=== PATIENT | female | born 1940 | race Caucasian/White ===

== ENCOUNTER → 2017-02-28 | Outpatient (CLI) | payer MEDICARE, OTHER ==
[~2017-02-28] VITALS: Ht 152.4 cm; Wt 75.7 kg
[~2017-02-28] MED LIST: /CELE20CA PO; /ESOM40CA OR; /WARF5TA PO; AMBI5TAB PO; ATOR1TAB21 PO; BACI500O8 TOP; CALCTAB28 PO; CALCTAB29 PO; CELE-19 PO; CETI10CH PO; COLA100C3 PO; COUM7.5T PO; CYCL10TA PO; DOCU100T PO; FISH1000 PO; FISHOIL XX; FLEX10TA2 PO; FOLI1TAB86 PO; GENT1SOL17 OU; HYDR200T3 PO; HYDROCHLOROQUIN OR; ICAPCAP PO; IRON65TA PO; LASI20TA PO; LIDO1DIS2 TD; LIDO5DIS EX; LIDOCAINE 2% INJ 100 MG/5 ML SDV (FOR ANES.) As Ordered ONE; LIDOCAINE PATCH TOP; MISO200T3 PO; MULTCAP8 PO; MULTTAB4 PO; NEXI40CA PO; NIFE1TAB PO; NIFE20CA PO; NS 1,000 ML IV ONE; OXYB10TA PO; PERC7.5T12 PO; PILO5TAB PO; PILO5TAB3 PO; PROPOFOL 200 MG/20 ML VIAL As Ordered ONE; SERT-138 PO; TYLE325T5 PO; VITA-130 PO; ZOLO100T PO; [UNRECOGNIZED DRUG - CODE] PO; [UNRECOGNIZED DRUG - CODE] PO; [UNRECOGNIZED DRUG - CODE] TOP; [UNRECOGNIZED DRUG - CODE] TOP; [UNRECOGNIZED DRUG - OTHER] OR; [UNRECOGNIZED DRUG - OTHER] OU; ambien OR
--- NOTE | 2017-02-28 13:21 | ROOR ---
Patient Name: Estefania Middleton Procedure Date: 02/28/2017 1:04 PM Date of : 1940 Age: 76 Room: [facility] Gender: Female Note Status: Finalized Procedure: Upper Endoscopy + Biopsies Indications: Follow-up of Tellez's esophagus Providers: Burton Arceo MD Referring MD: TAYLOR VAZQUEZ MD Requesting Provider: Medicines: Monitored Anesthesia Care Complications: No immediate complications. Procedure: Pre-Anesthesia Assessment: - The heart rate, respiratory rate, oxygen saturations, blood pressure, adequacy of pulmonary ventilation, and response to care were monitored throughout the procedure. The Endoscope was introduced through the mouth, and advanced to the second part of duodenum. The upper GI endoscopy was accomplished without difficulty. The patient tolerated the procedure well. Findings: The Z-line was irregular and was found 35 cm from the incisors. Multiple biopsies were obtained with cold forceps for evaluation to rule out Tellez's Esophagus randomly at the gastroesophageal junction. A medium-sized hiatal hernia was present. No other significant abnormalities were identified in a careful examination of the stomach. The exam of the duodenum was otherwise normal. Impression: - Z-line irregular, 35 cm from the incisors. - Medium-sized hiatal hernia. - Multiple biopsies were obtained at the gastroesophageal junction. - The examination was otherwise normal. Recommendation: - Patient has a contact number available for emergencies. The signs and symptoms of potential delayed complications were discussed with the patient. Return to normal activities tomorrow. Written discharge instructions were provided to the patient. - High fiber diet. - Discharge patient to home. - Follow an antireflux regimen. - Continue present medications. - Await pathology results. - Telephone GI clinic for pathology results in 1 week. - Check Portal Online for Path Results.([email or web address]) - Return to referring physician. - The findings and recommendations were discussed with the patient's family. Burton Arceo MD Burton Arceo MD 02/28/2017 1:20:57 PM This report has been signed electronically. Number of Addenda: 0 Note Initiated On: 02/28/2017 1:04 PM Estimated Blood Loss: Estimated blood loss: none.
--- NOTE | 2017-02-28 13:53 | ROOR ---
Patient Name: Estefania Middleton Procedure Date: 02/28/2017 1:06 PM Date of : 1940 Age: 76 Room: [facility] Gender: Female Note Status: Finalized Procedure: Total Colonoscopy to Cecum + Cold Snare Polypectomy + Hemoclips Indications: Colon cancer screening in patient at increased risk: Colorectal cancer in mother, High risk colon cancer surveillance: Personal history of colonic polyps Providers: Burton Arceo MD Referring MD: TAYLOR VAZQUEZ MD Requesting Provider: Medicines: Monitored Anesthesia Care Complications: No immediate complications. Procedure: Pre-Anesthesia Assessment: - The heart rate, respiratory rate, oxygen saturations, blood pressure, adequacy of pulmonary ventilation, and response to care were monitored throughout the procedure. The Colonoscope was introduced through the anus and advanced to the cecum, identified by appendiceal orifice and ileocecal valve. The colonoscopy was performed without difficulty. The patient tolerated the procedure well. The quality of the bowel preparation was good. Findings: The perianal and digital rectal examinations were normal. Non-bleeding internal hemorrhoids were found during retroflexion. The hemorrhoids were small and Grade I (internal hemorrhoids that do not prolapse). Scattered small-mouthed diverticula were found in the recto-sigmoid colon, sigmoid colon and descending colon. Multiple sessile polyps were found in the ascending colon. The polyps were small in size. These polyps were removed with a cold snare. Resection and retrieval were complete. To prevent bleeding after the polypectomy, five hemostatic clips were successfully placed (MR conditional). There was no bleeding at the end of the procedure. The exam was otherwise without abnormality on direct and retroflexion views. Impression: - Non-bleeding internal hemorrhoids. - Diverticulosis in the recto-sigmoid colon, in the sigmoid colon and in the descending colon. - Multiple small polyps in the ascending colon, removed with a cold snare. Resected and retrieved. Clips (MR conditional) were placed. - The examination was otherwise normal on direct and retroflexion views. - The exam was otherwise normal to the cecum. Recommendation: - Patient has a contact number available for emergencies. The signs and symptoms of potential delayed complications were discussed with the patient. Return to normal activities tomorrow. Written discharge instructions were provided to the patient. - Discharge patient to home. - High fiber diet. - Await pathology results. - Telephone GI clinic for pathology results in 1 week. - Repeat colonoscopy in 1 year for surveillance based on pathology results. - Return to referring physician. - Check Portal Online for Path Results.([email or web address] - Telephone GI clinic for pathology results in 1 week. - The findings and recommendations were discussed with the patient's family. Burton Arceo MD Burton Arceo MD 02/28/2017 1:53:22 PM This report has been signed electronically. Number of Addenda: 0 Note Initiated On: 02/28/2017 1:06 PM Estimated Blood Loss: Estimated blood loss: none.
[2017-02-28 14:15] VITALS: BP 157/80
== END | disposition home or self-care (01) ==
LOC: M OPP 12:15
PROVIDERS: ATTEND Internal Medicine Gastroenterology
DX: Z12.11 Encounter for screening for malignant neoplasm of colon (principal); D12.2 Benign neoplasm of ascending colon; K64.0 First degree hemorrhoids; K57.30 Diverticulosis of large intestine without perforation or abscess without bleeding; Z86.010 Personal history of colon polyps; Z80.0 Family history of malignant neoplasm of digestive organs; K22.70 Barrett's esophagus without dysplasia; K22.8 Other specified diseases of esophagus; K44.9 Diaphragmatic hernia without obstruction or gangrene; I10 Essential (primary) hypertension; E78.5 Hyperlipidemia, unspecified; K58.9 Irritable bowel syndrome, unspecified; R12 Heartburn; M19.90 Unspecified osteoarthritis, unspecified site; M54.9 Dorsalgia, unspecified; F41.9 Anxiety disorder, unspecified; F32.9 Major depressive disorder, single episode, unspecified; R06.02 Shortness of breath; Z88.2 Allergy status to sulfonamides; Z88.8 Allergy status to other drugs, medicaments and biological substances; Z79.899 Other long term (current) drug therapy

== ENCOUNTER → 2017-06-23 | Outpatient (REF) | payer MEDICARE, OTHER ==
[~2017-06-23] MED LIST changes: -CELE-19 PO; +CELE1CAP4 PO; -COLA100C3 PO; +COLA100C5 PO; -LIDOCAINE 2% INJ 100 MG/5 ML SDV (FOR ANES.) As Ordered ONE; +MISO200T56 PO; -NS 1,000 ML IV ONE; -PROPOFOL 200 MG/20 ML VIAL As Ordered ONE; -VITA-130 PO; +VITA500T PO
[2017-06-23 16:10] LABS: BASO % 0.3 % (0.0-1.0); EOS # 0.2 K/mm3 (0.0-0.50); EOS % 2.4 % (0.0-3.0); LARGE UNSTAINED CELL # 0.1 K/mm3 (0.0-0.4); LARGE UNSTAINED CELL % 1.7 % (0.0-4.0); LYMPH # 2.4 K/mm3 (1.5-4.5); LYMPH % 33.6 % (24.0-44.0); MEAN CORPUSCULAR HEMOGLOBIN 30.5 pg (27.0-33.0); MEAN CORPUSCULAR HGB CONC 33.8 g/dl (32.0-36.5); MEAN CORPUSCULAR VOLUME 90.3 fl (80.0-96.0); MONO # 0.4 K/mm3 (0.0-0.8); MONO % 6.1 % (0.0-5.0); NEUTROPHILS # 3.9 K/mm3 (1.8-7.7); NEUTROPHILS % 55.8 % (36.0-66.0); PLATELET COUNT, AUTOMATED 177 k/mm3 (150-450); RED CELL DISTRIBUTION WIDTH 13.1 % (11.5-14.5)
[2017-06-23 16:45] LABS: ERYTHROCYTE SEDIMENTATION RATE 22 mm/hr (0-30)
== END ==
LOC: M LABDRAW1 15:29
PROVIDERS: ATTEND Physician Assistant
DX: M17.11 Unilateral primary osteoarthritis, right knee (principal)

== ENCOUNTER → 2017-06-27 | Outpatient (CLI) | payer MEDICARE, OTHER ==
--- NOTE | 2017-06-27 13:10 | REP ---
Three-phase bone scan of the knees: History: Osteoarthritis right knee. Question infection in the left knee. The patient relates pain in the left knee with redness, swelling, and heat. Comparison scintigraphy is from August 21, 2015. The patient is status post left knee arthroplasty 5 years ago. Technique: 22.0 mCi technetium 99m MDP is injected and standard three-phase imaging is acquired. Scintigraphic findings: The anterior and posterior flow study is normal. Blood pool images demonstrate photopenia associated with prosthetic arthroplasty components in the left knee. Delayed scan images demonstrate expected bone prosthesis interface uptake on both sides of the knee arthroplasty in the left knee. Medial soft tissue calf uptake is again noted bilaterally possibly related to varicosities as before. No change from comparison study. Impression: No evidence to suggest loosening or infection. Signed by Lorenzo Miramontes MD 06/27/2017 04:29 P
== END ==
LOC: M RAD 08:05
PROVIDERS: ATTEND Physician Assistant
DX: M17.11 Unilateral primary osteoarthritis, right knee (principal)
CPT/HCPCS: 78315; A9503

== ENCOUNTER → 2017-07-04 | Outpatient (REF) | payer MEDICARE, OTHER | LOC: M LABDRAW1 16:51 | PROVIDERS: ATTEND Physician Assistant | DX: M70.62 Trochanteric bursitis, left hip (principal) ==

== ENCOUNTER → 2018-04-06 | Outpatient (CLI) | payer MEDICARE, OTHER | LOC: M RAD 15:41 | DX: I27.20 Pulmonary hypertension, unspecified (principal); M34.9 Systemic sclerosis, unspecified; I65.23 Occlusion and stenosis of bilateral carotid arteries | CPT/HCPCS: 93880 ==

== ENCOUNTER → 2018-05-15 | Outpatient (CLI) | payer MEDICARE, OTHER | LOC: M WHC 08:47 | DX: Z13.820 Encounter for screening for osteoporosis (principal); M85.88 Other specified disorders of bone density and structure, other site; M85.852 Other specified disorders of bone density and structure, left thigh; M85.851 Other specified disorders of bone density and structure, right thigh; M34.9 Systemic sclerosis, unspecified | CPT/HCPCS: 77080 ==

== ENCOUNTER → 2018-07-12 | Outpatient (CLI) | payer MEDICARE, OTHER | LOC: M WHC 12:51 | DX: Z12.31 Encounter for screening mammogram for malignant neoplasm of breast (principal); N60.31 Fibrosclerosis of right breast; N60.32 Fibrosclerosis of left breast | CPT/HCPCS: 77067 ==

== ENCOUNTER 2018-08-02 09:40 | Day surgery (SDC) | payer MEDICARE, OTHER ==
[2018-08-02] MEDS: NS 1,000 ML IV (10:29)
[2018-08-02] MEDS ORDERED: LIDOCAINE 2% INJ 100 MG/5 ML SDV (FOR ANES.) As Ordered (10:49)
[2018-08-02] MEDS ORDERED: PROPOFOL 200 MG/20 ML VIAL As Ordered ×2 (10:49)
== END 2018-08-02 12:15 | disposition home or self-care (01) ==
LOC: M OPP 09:40
DX: Z09 Encounter for follow-up examination after completed treatment for conditions other than malignant neoplasm (principal); D37.4 Neoplasm of uncertain behavior of colon; Z86.010 Personal history of colon polyps; D12.2 Benign neoplasm of ascending colon; K64.0 First degree hemorrhoids; K57.30 Diverticulosis of large intestine without perforation or abscess without bleeding; R12 Heartburn; K22.70 Barrett's esophagus without dysplasia; K22.8 Other specified diseases of esophagus; K44.9 Diaphragmatic hernia without obstruction or gangrene; I10 Essential (primary) hypertension; E78.5 Hyperlipidemia, unspecified; R01.1 Cardiac murmur, unspecified; E11.9 Type 2 diabetes mellitus without complications; K58.9 Irritable bowel syndrome, unspecified; K21.9 Gastro-esophageal reflux disease without esophagitis; D64.9 Anemia, unspecified; M19.90 Unspecified osteoarthritis, unspecified site; M06.9 Rheumatoid arthritis, unspecified; M79.7 Fibromyalgia; M32.9 Systemic lupus erythematosus, unspecified; M54.89 Other dorsalgia; I73.00 Raynaud's syndrome without gangrene; M34.9 Systemic sclerosis, unspecified; M81.0 Age-related osteoporosis without current pathological fracture; R51 Headache; Z78.0 Asymptomatic menopausal state; J34.89 Other specified disorders of nose and nasal sinuses; I27.0 Primary pulmonary hypertension; R06.02 Shortness of breath; F17.210 Nicotine dependence, cigarettes, uncomplicated; Z96.652 Presence of left artificial knee joint; Z88.2 Allergy status to sulfonamides; Z88.8 Allergy status to other drugs, medicaments and biological substances; Z79.899 Other long term (current) drug therapy; Z80.0 Family history of malignant neoplasm of digestive organs; Z80.49 Family history of malignant neoplasm of other genital organs
CPT/HCPCS: 45380

== ENCOUNTER → 2018-12-12 | Outpatient (CLI) | payer MEDICARE, OTHER ==
[~2018-12-12] MED LIST changes: +DICL1GEL3 TOP; +FISH7.5C PO; +FOLI1TAB11 PO; -LASI20TA PO; +LASI20TA3 PO; +LIDO5DIS41 TD; -NIFE1TAB PO; +NIFE90TA20 PO
--- NOTE | 2018-12-19 23:08 | SLEEPCENT ---
DATE OF PROCEDURE: 12/12/2018 Order by: Dr. Miramontes Nocturnal polysomnography was performed for evaluation of sleep physiology in this patient with a history of excessive somnolence and nonrestorative sleep. 8 hours of 14 minutes of data were reviewed. There were 412 minutes of sleep identified. Sleep latency was normal at 18 minutes. REM latency was delayed at 359 minutes. Sleep architecture initially poor, improved late in the study with one REM cycle noted. Overall sleep efficiency was 85%. The patient's electrocardiogram showed a sinus rhythm with an average heart rate of 84 beats per minute. EEG showed normal waveforms for awake and sleep. There 243 respiratory events identified of 10 seconds in duration or greater for an apnea-hypopnea index of 35.4. The events were primarily obstructive, not exclusive to sleep stage, more frequent but not exclusive to the supine posture. Arousals from respiratory events occurred 3.1 times per hour, oxygen desaturations were seen into the 70s with minor limb activity noted. IMPRESSION Severe obstructive sleep apnea syndrome (G47.33). Apnea-hypopnea index 35.4. RECOMMENDATIONS The patient should be encouraged to return to the sleep disorder center for pressure therapy. In the interim, alcohol and sedative avoidance should be practiced and caution exercised during the operation of motor vehicles.
== END ==
LOC: M SLEEP 19:29
PROVIDERS: ATTEND Internal Medicine Pulmonary Disease
DX: G47.33 Obstructive sleep apnea (adult) (pediatric) (principal)

== ENCOUNTER → 2019-02-07 | Outpatient (CLI) | payer MEDICARE, OTHER ==
[~2019-02-07] MED LIST changes: -/CELE20CA PO; -/ESOM40CA OR; -/WARF5TA PO; +COUM1TAB17 PO; +NEXI1CAP3 OR; +[UNRECOGNIZED DRUG - CODE] PO; -[UNRECOGNIZED DRUG - CODE] PO
--- NOTE | 2019-02-12 16:22 | SLEEPCENT ---
DATE OF PROCEDURE: 02/07/2019 ORDERED BY: Dr. Miramontes Nocturnal polysomnography was performed for the titration of pressure therapy in this patient with obstructive sleep apnea syndrome, apnea-hypopnea index 35.4. For testing, the patient was fit with a ResMed AirFit F10 full face mask of small size. 4 cm of water pressure were applied to the circuit and the lights were extinguished. 8 hours and 12 minutes of data were reviewed. There were 346 minutes of sleep identified. Sleep latency was mildly prolonged at 49 minutes. Rapid eye movement (REM) sleep occurred shortly after sleep onset at 37 minutes. Sleep architecture was fair. Overall sleep efficiency 71%. Two REM cycles were appreciated. The patient's electrocardiogram showed a sinus rhythm with an average heart rate at 80 beats per minute. EEG showed normal waveforms for awake and sleep stages. Persistence of respiratory events prompted an increase in continuous positive airway pressure (CPAP) at a pressure of 13 cm and mild hypopneic events were seen, but there were no significant oxygen desaturations. IMPRESSION: Obstructive sleep apnea syndrome (G47.33). RECOMMENDATIONS: Nightly use of pressure therapy 13 cm of water.
== END ==
LOC: M SLEEP 19:25
PROVIDERS: ATTEND Internal Medicine Pulmonary Disease
DX: G47.33 Obstructive sleep apnea (adult) (pediatric) (principal)

== ENCOUNTER → 2020-02-11 | Outpatient (CLI) | payer MEDICARE, OTHER ==
[~2020-02-11] MED LIST changes: +CYCL-707 PO; -CYCL10TA PO; -OXYB10TA PO; +OXYB10TA23 PO; +VITA-243 PO; -VITA500T PO
--- NOTE | 2020-02-11 11:30 | REP ---
REASON FOR EXAM: History of scleroderma. Assess for interstitial lung disease. There are no prior for comparison. Standard CT imaging of the chest 09/04/2014 is the only prior chest CT for comparison. There are no fixed ground-glass opacities. No abnormal septal opacities are present. There are no significant pulmonary nodules. There is mild cylindrical bronchiectasis. There is no honeycomb lung. There are a few subcentimeter sized cystic airspaces in the right lung. There is no mediastinal or hilar adenopathy. There are no pleural or pericardial effusions. The imaged upper abdomen and imaged osseous structures are within normal limits. IMPRESSION: 1. Mild chronic lung field changes as described above. There is no evidence of interstitial lung disease. 2. There is a single 4 mm sized pleural-based nodule in the left upper lobe. When compared to the 09/04/[address] of the chest, this nodule is unchanged. In addition, the small cystic airspaces seen in the right lung are unchanged from that prior standard CT of the chest as well. Electronically Signed by Duane Villagran DO 02/11/2020 12:12 P
== END ==
LOC: M RAD 09:40
PROVIDERS: ATTEND Internal Medicine Pulmonary Disease
DX: L94.3 Sclerodactyly (principal); R91.1 Solitary pulmonary nodule; J47.9 Bronchiectasis, uncomplicated

== ENCOUNTER → 2021-06-25 | Outpatient (CLI) | payer MEDICARE, OTHER ==
--- NOTE | 2021-06-25 20:25 | REPVR ---
PROCEDURE INFORMATION: Exam: MR Head Without Contrast Exam date and time: 06/25/2021 9:48 AM Age: 81 years old Clinical indication: Pain; Headache TECHNIQUE: Imaging protocol: MR of the head without contrast. COMPARISON: US Duplex,carotid (complete) 04/06/2018 3:57 PM FINDINGS: Brain: Nonspecific T2/FLAIR hyperintensities of the periventricular and deep subcortical white matter and melissa, most likely secondary to chronic small vessel ischemic change. No intracranial hemorrhage or extra-axial fluid collection. No evidence of mass effect or midline shift. No restricted diffusion to suggest acute infarct. Cerebral ventricles: Mild prominence of the ventricles and sulci, likely attributed to parenchymal volume loss. Bones/joints: Unremarkable. Paranasal sinuses: Normal as visualized. No acute sinusitis. Mastoid air cells: No mastoid effusion. Orbital cavity: Unremarkable. Soft tissues: Unremarkable. IMPRESSION: 1. No acute intracranial pathology. 2. Chronic findings, as above. Electronically signed by: Francisco Ramon On 06/25/2021 20:25:01 PM
== END ==
LOC: M PLAIMG 07:56
PROVIDERS: ATTEND Emergency Medicine
DX: R51.9 Headache, unspecified (principal)

== ENCOUNTER → 2022-04-18 | Outpatient (CLI) | payer MEDICARE, OTHER | LOC: M RAD 13:14 | PROVIDERS: ATTEND Student in an Organized Health Care Education/Training Program | DX: M25.511 Pain in right shoulder (principal) ==

== ENCOUNTER → 2022-09-17 | Outpatient (CLI) | payer MEDICARE, OTHER ==
[~2022-09-17] MED LIST changes: +FISH10005 PO; -FISH7.5C PO
[2022-09-17 13:13] LABS: PLATELET COUNT, AUTOMATED 170 10^3/uL (150-450)
[2022-09-17 13:25] LABS: INR 0.92; PROTHROMBIN TIME 12.6 SECONDS (12.5-14.5)
== END ==
LOC: M PLALAB 10:07
PROVIDERS: ATTEND Physician Assistant
DX: M48.062 Spinal stenosis, lumbar region with neurogenic claudication (principal); Z79.899 Other long term (current) drug therapy

== ENCOUNTER → 2023-01-04 | Outpatient (CLI) | payer MEDICARE, OTHER ==
[~2023-01-04] MED LIST changes: +ISOVUE-370 76% 100ML VIAL As Ordered ONE
== END ==
LOC: M RAD 08:13
PROVIDERS: ATTEND Otolaryngology
DX: M35.00 Sjogren syndrome, unspecified (principal)
CPT/HCPCS: 70491; Q9967

== ENCOUNTER → 2023-01-12 | Outpatient (CLI) | payer MEDICARE ==
[~2023-01-12] MED LIST changes: -ISOVUE-370 76% 100ML VIAL As Ordered ONE
== END ==
LOC: M RAD 10:12
PROVIDERS: ATTEND Otolaryngology
DX: K44.9 Diaphragmatic hernia without obstruction or gangrene (principal); K21.9 Gastro-esophageal reflux disease without esophagitis; R13.10 Dysphagia, unspecified; R06.00 Dyspnea, unspecified

== ENCOUNTER → 2023-01-12 | Outpatient (CLI) | payer MEDICARE ==
[~2023-01-12] MED LIST changes: +E-Z-GAS II EFFERVESCENT PACKET (SODIUM BICARB./CITRIC ACID/SIMETHICONE) As Ordered ONE; +E-Z-HD 98% w/w 340GM SUSP BTL As Ordered ONE; +E-Z-PAQUE 96% w/w SUSP 176GM BTL As Ordered ONE
== END ==
LOC: M RAD 10:19
PROVIDERS: ATTEND Internal Medicine Pulmonary Disease
DX: R06.00 Dyspnea, unspecified (principal)

== ENCOUNTER 2023-02-19 15:44 | Emergency (ER) | payer MEDICARE ==
[~2023-02-19] VITALS: Ht 152.4 cm; Wt 77.3 kg
[~2023-02-19 15:44] MED LIST changes: -E-Z-GAS II EFFERVESCENT PACKET (SODIUM BICARB./CITRIC ACID/SIMETHICONE) As Ordered ONE; -E-Z-HD 98% w/w 340GM SUSP BTL As Ordered ONE; -E-Z-PAQUE 96% w/w SUSP 176GM BTL As Ordered ONE
[2023-02-19] MEDS ORDERED: traMADol 50 MG TAB PO ONE (17:05)
[2023-02-19] MEDS ORDERED: LIDOCAINE 5% (LIDODERM) PATCH TD ONE (17:05)
[2023-02-19] MEDS ORDERED: predniSONE 20 MG TAB PO ONE (18:55)
[2023-02-19] MEDS ORDERED: MEDR4PAK PO (18:59)
[2023-02-19] MEDS ORDERED: TRAM50TA2 PO (18:59)
[2023-02-19 19:15] VITALS: BP 154/60
== END 2023-02-19 19:17 | disposition home or self-care (01) ==
LOC: M ED 15:44
DX: M25.552 Pain in left hip (principal); M54.50 Low back pain, unspecified; I10 Essential (primary) hypertension; R51.9 Headache, unspecified; M32.9 Systemic lupus erythematosus, unspecified; Z88.2 Allergy status to sulfonamides; Z88.8 Allergy status to other drugs, medicaments and biological substances; Z79.1 Long term (current) use of non-steroidal anti-inflammatories (NSAID); Z79.811 Long term (current) use of aromatase inhibitors; Z79.899 Other long term (current) drug therapy
CPT/HCPCS: 72131; 73700; 93971; 99283; J7512

== ENCOUNTER → 2023-02-28 | Outpatient (CLI) | payer MEDICARE, OTHER ==
[~2023-02-28] MED LIST changes: +MEDR4PAK PO; +TRAM50TA2 PO
== END ==
LOC: M RAD 10:41
PROVIDERS: ATTEND Otolaryngology
DX: E04.2 Nontoxic multinodular goiter (principal)

== ENCOUNTER → 2023-03-21 | Outpatient (CLI) | payer MEDICARE, OTHER ==
[~2023-03-21] MED LIST changes: -HYDR200T3 PO; +HYDR200T46 PO; -NIFE90TA20 PO; +NIFE90TA46 PO
[2023-03-21 13:11] LABS: PLATELET COUNT, AUTOMATED 182 10^3/uL (150-450)
[2023-03-21 13:20] LABS: INR 0.9; PROTHROMBIN TIME 12.3 SECONDS (12.5-14.5)
[2023-03-21 13:21] LABS: PARTIAL THROMBOPLASTIN TIME 28.8 SECONDS (24.8-34.2)
== END ==
LOC: M PLALAB 11:03
PROVIDERS: ATTEND Physician Assistant Surgical
DX: Z01.818 Encounter for other preprocedural examination (principal)

== ENCOUNTER → 2023-11-04 | Outpatient (CLI) | payer MEDICARE, OTHER ==
[~2023-11-04] MED LIST changes: +DICL100G10 TOP; -DICL1GEL3 TOP; +KP F1200 PO; +METH2.5T48; -MISO200T56 PO; +MISO200T83 PO; +MYRB25TA PO; +VENTAER INH
== END ==
LOC: M WHC 10:39
PROVIDERS: ATTEND Internal Medicine
DX: M81.0 Age-related osteoporosis without current pathological fracture (principal); M85.88 Other specified disorders of bone density and structure, other site

== ENCOUNTER → 2023-11-15 | Outpatient (CLI) | payer MEDICARE, OTHER ==
[~2023-11-15] MED LIST changes: +GASTROGRAFIN SOLUTION 30ML As Ordered ONE; +ISOVUE-370 76% 100ML VIAL As Ordered ONE
== END ==
LOC: M RAD 12:45
PROVIDERS: ATTEND Internal Medicine
DX: R10.12 Left upper quadrant pain (principal); N28.1 Cyst of kidney, acquired
CPT/HCPCS: 74170; Q9963; Q9967

== ENCOUNTER → 2024-05-24 | Outpatient (CLI) | payer MEDICARE, OTHER ==
[~2024-05-24] MED LIST changes: +CALC1TAB30 PO; +CVSTAB PO; -GASTROGRAFIN SOLUTION 30ML As Ordered ONE; +ICAPCAP2 PO; -ISOVUE-370 76% 100ML VIAL As Ordered ONE; +LOTE5DRO OP; +METH2.5T48 PO; +PILO7.5T3 PO
== END ==
LOC: M PLAIMG 09:48
PROVIDERS: ATTEND Internal Medicine Pulmonary Disease
DX: R91.8 Other nonspecific abnormal finding of lung field (principal)

== ENCOUNTER → 2024-05-24 | Outpatient (CLI) | payer MEDICARE, OTHER | LOC: M CARPUL 08:47 | PROVIDERS: ATTEND Internal Medicine Pulmonary Disease | DX: R06.00 Dyspnea, unspecified (principal); R91.8 Other nonspecific abnormal finding of lung field ==

== ENCOUNTER 2024-05-28 10:19 | Day surgery (SDC) | payer MEDICARE, OTHER ==
[~2024-05-28] VITALS: Ht 152.4 cm; Wt 67.3 kg
[~2024-05-28 10:19] MED LIST changes: +NS 1,000 ML IV ONE
[2024-05-28] MEDS: NS 1,000 ML IV ONE (10:50)
[2024-05-28] MEDS ORDERED: propofoL 200 MG/20 ML VIAL As Ordered ONE (11:46)
[2024-05-28] MEDS ORDERED: LIDOCAINE 2% 100MG/5ML SDV (FOR ANES.) As Ordered ONE (11:46)
[2024-05-28 13:00] VITALS: BP 140/66; O2SAT 98
== END 2024-05-28 13:13 | disposition home or self-care (01) ==
LOC: M OPP 10:19
PROVIDERS: ATTEND Internal Medicine Gastroenterology
DX: Z12.11 Encounter for screening for malignant neoplasm of colon (principal); Z86.010 Personal history of colon polyps; Z80.0 Family history of malignant neoplasm of digestive organs; K63.5 Polyp of colon; K64.0 First degree hemorrhoids; K57.30 Diverticulosis of large intestine without perforation or abscess without bleeding; K22.89 Other specified disease of esophagus; K44.9 Diaphragmatic hernia without obstruction or gangrene; K22.70 Barrett's esophagus without dysplasia; R12 Heartburn; G47.30 Sleep apnea, unspecified; M32.9 Systemic lupus erythematosus, unspecified; M79.7 Fibromyalgia; Z79.1 Long term (current) use of non-steroidal anti-inflammatories (NSAID); Z79.2 Long term (current) use of antibiotics; Z79.4 Long term (current) use of insulin; Z79.631 Long term (current) use of antimetabolite agent; Z79.891 Long term (current) use of opiate analgesic; Z79.899 Other long term (current) drug therapy; Z88.2 Allergy status to sulfonamides

== ENCOUNTER → 2024-09-12 | Outpatient (REF) | payer MEDICARE, OTHER ==
[~2024-09-12] MED LIST changes: -NS 1,000 ML IV ONE
[2024-09-12 17:40] LABS: APPEARANCE, URINE HAZY (CLEAR); BACTERIA, URINE AUTO NEGATIVE (NEGATIVE); BILIRUBIN, URINE AUTO NEGATIVE (NEGATIVE); BLOOD, URINE BLOOD NEGATIVE (NEGATIVE); COLOR, URINE AMBER (YELLOW); GLUCOSE, URINE (UA) AUTO NEGATIVE (NEGATIVE); KETONE, URINE AUTO TRACE mg/dL (NEGATIVE); LEUKOCYTE ESTERASE, URINE AUTO NEGATIVE (NEGATIVE); MUCUS, URINE SMALL (NEGATIVE); NITRITE, URINE AUTO NEGATIVE (NEGATIVE); PROTEIN, URINE AUTO 1+ mg/dL (NEGATIVE); RBC, URINE AUTO 0 /HPF (0-3); SPECIFIC GRAVITY URINE AUTO 1.024 (1.002-1.035); SQUAMOUS EPITHELIAL CELL UR AU 0 /HPF (0-6); WBC, URINE AUTO 1 /HPF (0-3)
== END ==
LOC: M SMT 17:00
PROVIDERS: ATTEND Nurse Practitioner Family
DX: N39.46 Mixed incontinence (principal)

== ENCOUNTER 2024-12-09 16:38 | Emergency (ER) | payer MEDICARE, OTHER ==
[~2024-12-09] VITALS: Ht 152.4 cm; Wt 68.6 kg
[2024-12-09] MEDS: ACETAMINOPHEN 500 MG TAB PO ONE (18:39)
[2024-12-09 18:55] VITALS: BP 143/66; TEMP 99.1; O2SAT 96
[2024-12-09] MEDS: DERMABOND TOPICAL SKIN ADHESIVE TOP ONE (19:24)
== END 2024-12-09 19:38 | disposition home or self-care (01) ==
LOC: M ED 16:38
DX: S01.81XA Laceration without foreign body of other part of head, initial encounter (principal); W01.198A Fall on same level from slipping, tripping and stumbling with subsequent striking against other object, initial encounter; M51.360 Other intervertebral disc degeneration, lumbar region with discogenic back pain only; M43.16 Spondylolisthesis, lumbar region; M25.78 Osteophyte, vertebrae; R51.9 Headache, unspecified; M32.9 Systemic lupus erythematosus, unspecified; Y92.009 Unspecified place in unspecified non-institutional (private) residence as the place of occurrence of the external cause; Y93.89 Activity, other specified; Y99.9 Unspecified external cause status; Z88.2 Allergy status to sulfonamides; Z79.52 Long term (current) use of systemic steroids; Z79.899 Other long term (current) drug therapy

== ENCOUNTER → 2025-08-06 | Outpatient (CLI) | payer MEDICARE, OTHER ==
[~2025-08-06] MED LIST changes: -AMBI5TAB PO; +LIDO1ADH93 TD; -LIDO5DIS41 TD; +ZOLP-532 PO
== END ==
LOC: M PLAIMG 11:01
PROVIDERS: ATTEND Internal Medicine Pulmonary Disease
DX: R06.00 Dyspnea, unspecified (principal)

== ENCOUNTER → 2025-08-12 | Outpatient (CLI) | payer MEDICARE, OTHER | LOC: M PLAIMG 08:44 | PROVIDERS: ATTEND Internal Medicine Pulmonary Disease | DX: I27.20 Pulmonary hypertension, unspecified (principal) ==